=== PATIENT | female | born 1940 | race Caucasian/White ===

== ENCOUNTER 2022-12-05 06:33 | Outpatient (CLI) | payer MEDICARE, OTHER | END 2022-12-05 23:59 | disposition left against medical advice (07) | LOC: EMS 06:33 | DX: Z03.89 Encounter for observation for other suspected diseases and conditions ruled out (principal) ==

== ENCOUNTER 2023-02-01 12:54 | Outpatient (CLI) | payer MEDICARE | END 2023-02-01 23:59 | disposition short-term general hospital (02) | LOC: EMS 12:54 | DX: R06.00 Dyspnea, unspecified (principal); R09.89 Other specified symptoms and signs involving the circulatory and respiratory systems; R53.83 Other fatigue; Z99.81 Dependence on supplemental oxygen | CPT/HCPCS: A0425; A0429 ==

== ENCOUNTER 2023-02-14 06:40 | Outpatient (CLI) | payer MEDICARE | END 2023-02-14 23:59 | disposition EMS.NT | LOC: EMS 06:40 | DX: Z03.89 Encounter for observation for other suspected diseases and conditions ruled out (principal) ==

== ENCOUNTER 2023-02-14 14:00 | Outpatient (CLI) | payer MEDICARE | END 2023-02-14 23:59 | disposition EMS.NT | LOC: EMS 14:00 | DX: R53.1 Weakness (principal); R53.83 Other fatigue ==